=== PATIENT | male | born 1980 | race Caucasian/White ===

== ENCOUNTER 2017-04-01 18:55 | Emergency (ER) | payer SELFPAY ==
--- NOTE | 2017-04-01 19:54 | ED ORDER SUMMARY ---
..... Patient: VERO CARPENTER OrderSheet [facility] VisitID: [id number] [place] [address] 37y, M Registration Date/Time: 04/01/2017 ORDER SHEET Weight: 68.0 kg (stated) Allergies: No Known Drug Allergy GENERAL ORDERS: MEDICATION ORDERS: Proparacaine Eye Drops (Solution 0.5 %) 2 drops (place at bedside) (:04/01/2017 Delfina AJ) (Ack 19:30 HSoule) (20:33 HSoule) Fluorescein Eye Strips 1 strips (NOW) (04/01/2017 Delfina AJ) (Ack 19:30 HSoule) (20:33 HSoule) IV FLUIDS: ORDER SHEET NOTES: [Electronically signed by Laura Wilkins (20:33 04/01/2017)] [Electronically signed by Raghavendra Vazquez MD (09:43 04/02/2017)] [Electronically locked/signed by Laura Wilkins (20:33 04/01/2017)]
--- NOTE | 2017-04-01 19:54 | ED ORDER SUMMARY ---
..... Patient: VERO CARPENTER OrderSheet [facility] VisitID: [id number] [place] [address] 37y, M Registration Date/Time: 04/01/2017 ORDER SHEET Weight: 68.0 kg (stated) Allergies: No Known Drug Allergy GENERAL ORDERS: MEDICATION ORDERS: Proparacaine Eye Drops (Solution 0.5 %) 2 drops (place at bedside) (:04/01/2017 Delfina AJ) (Ack 19:30 HSoule) (20:33 HSoule) Fluorescein Eye Strips 1 strips (NOW) (04/01/2017 Delfina AJ) (Ack 19:30 HSoule) (20:33 HSoule) IV FLUIDS: ORDER SHEET NOTES: [Electronically signed by Laura Wilkins (20:33 04/01/2017)] [Electronically signed by Raghavendra Vazquez MD (09:43 04/02/2017)] [Electronically locked/signed by Laura Wilkins (20:33 04/01/2017)]
--- NOTE | 2017-04-01 19:54 | ED CLINICAL REPORT ---
Clinical Report - Physicians/Mid Levels [facility] [address] [place] [address] 04/01/2017 18:56 Patient: VERO CARPENTER Time Seen: 19:22. Arrived- By private vehicle. Historian- patient. HISTORY OF PRESENT ILLNESS Chief Complaint: EYE FOREIGN BODY. This started today, involves the left eye, is characterized as severe and has been constant and is still present. The patient may have sustained an injury. 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 He possibly has foreign material in the left eye. Eye discomfort, burning, redness and irritation. REVIEW OF SYSTEMS No chills, fever, sweats, calf pain or chest pain. No cough, difficulty breathing, pedal edema, palpitations or abdominal pain. No constipation, diarrhea, nausea, vomiting or urinary problems. All systems otherwise negative, except as recorded above. PAST HISTORY Tetanus immunization status is up-to-date. SOCIAL HISTORY Never smoker. Occasional alcohol use. No drug use. FAMILY HISTORY No significant family medical history. ADDITIONAL NOTES The nursing notes have been reviewed. PHYSICAL EXAM Vital Signs: 04/01/2017 19:10 BP: 136/91. HR: 79. RR: 20. O2 saturation: 99%. Temp: 97.6 F. Pain level now: 9/10. Have been reviewed. Appearance: Alert. HEENT: Pharynx normal. Eyes: Visual acuity noted- see nurse's notes. Left eyelid everted for examination. Left cornea examined with fluorescein stain. Pupils equal, round and reactive to light. Accommodation normal. Funduscopic exam normal. EOMs intact. Anterior chambers clear. Anterior chambers of normal depth. Lt Eye: Eyelid erythema. Conjunctival edema. Injected conjunctiva. Conjunctival injury: mild swelling and small abrasion localized to the inferior aspect of the conjunctiva. No foreign body under the eyelid. No injury to the eyelids. No conjunctival foreign body, corneal foreign body or abrasion or fluorescein dye uptake. Neck: Neck supple. CVS: Normal heart rate and rhythm. Respiratory: No respiratory distress. Skin: No rash. Extremities: Extremities negative. PROGRESS AND PROCEDURES Course of Care: Patient is stable. Patient/family counseled. Old medical records reviewed. Disposition: Discharged. Condition: stable. CLINICAL IMPRESSION Acute conjunctivitis of the left eye. INSTRUCTIONS Warnings: GENERAL WARNINGS: Return or contact your physician immediately if your condition worsens or changes unexpectedly, if not improving as expected, or if other problems arise. Prescription Medications: Gentamicin ophthalmic ointment 0.3% : Apply 1/2 inch to inner aspect of the lower lid on the affected eye every 8 hours for 1 week. Dispense three and one half (3.5) gm. No refills. OTC Medications: Lacri-Lube ophthalmic ointment (available over the counter): take according to label instructions. Follow-up: Follow up with your doctor as needed. Understanding of the discharge instructions verbalized by patient. (Electronically signed by Raghavendra Vazquez MD 04/02/2017 9:43)
--- NOTE | 2017-04-01 19:54 | ED NURSING NOTES ---
Clinical Report - Nurses [facility] [place] [address] 04/01/2017 18:56 Patient: VERO CARPENTER TRIAGE Triage time 19:11. Acuity: LEVEL 3. Chief Complaint: REDNESS, PAIN and FOREIGN BODY TO LEFT EYE. --19:15 Sheriff Hanna R.N. 19:10 04/01/17. BP: 136/91. HR: 79. RR: 20. O2 saturation: 99%. Temp: 97.6 F. Pain level now: 05/29. --19:15 Sheriff Hanna R.N. VISUAL ACUITY: Visual acuity performed: left eye 20/30; right eye 20/20. --19:16 Sheriff Hanna R.N. Weight: 68 kg stated. Height/Length: 68 inches Per Patient. BMI: 22.8. --19:11 Sheriff Hanna R.N. Medications None. --19:13 Sheriff Hanna R.N. Allergies No Known Drug Allergy. --19:13 Sheriff Hanna R.N. History Arrived by private vehicle. Historian: patient. Accompanied by friend. This started yesterday. He did not sustain an injury. 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 He does steel work.). SURGERY HX: No history of previous surgery. SOCIAL HX: Never smoker. Alcohol use; consumes beer weekly. No drug use. FALL RISK ASSESSMENT: Fall risk assessment completed. No fall risk identified. NUTRITIONAL RISK ASSESSMENT: The nutritional risk assessment revealed no deficiencies. FUNCTIONAL ASSESSMENT: Functional assessment: no impairments noted. LEARNING NEEDS ASSESSMENT: The learning needs assessment revealed no barriers. SKIN INTEGRITY ASSESSMENT: Skin integrity risk assessment completed. No skin integrity risk identified. --19:15 Sheriff Hanna R.N. PROBLEMS: Hypertension. Laceration. Substance Abuse. Immunizations. Healing Abscess. Abscess. Cellulitis. Tetanus Status. --19:14 Sheriff Hanna R.N. PHYSICAL ASSESSMENT Ambulatory to room. GENERAL / NEURO / PSYCH: Alert. Appears anxious. HEENT: No facial asymmetry noted. RESPIRATORY: Respirations not labored. CVS: Capillary refill less than 2 seconds. SKIN: Skin is warm and dry. Normal skin turgor. --19:15 Sheriff Hanna R.N. NURSING PROGRESS NOTES Head of bed elevated. Patient identifiers checked. Call light placed in reach. Side rails up x 2. Bed placed in lowest position. Brakes of bed on. --19:15 Sheriff Hanna R.N. 19:45 04/01/2017 Proparacaine Eye Drops Opthalmic solution 2 drop given. Given in both eyes. Allergies verified and confirmed 5 rights. (Administered by provider at bedside). --20:33 Laura Wilkins 19:45 04/01/2017 FLUORESCEIN Opth soln Opthalmic solution 1 Strip given. Given in both eyes. Allergies verified and confirmed 5 rights. (Administered by provider at bedside). --20:33 Laura Wilkins. DISPOSITION / DISCHARGE 20:00 04/01/17. Condition at departure: stable. The goals identified in the patient's plan of care were met. No learning barriers present. Discharge instructions provided and reviewed with the patient and spouse. Reviewed medication(s) side effects, precautions, dosing and course information. Prescription(s) given to the patient. Reviewed eye care instructions. Reviewed need for increased fluid intake. Patient and spouse verbalized understanding. Written instructions provided in Indonesian. ( Follow up with your PCP as needed. Keep the eyes clean. Discussed eye medication and administration. Patient and spouse verbalized understanding and had no additional questions at this time.). The patient was discharged by the physician. He was discharged home and accompanied by spouse. He left the Emergency Department ambulatory and via private vehicle. Spouse driving. FALL RISK ASSESSMENT: Fall risk assessment completed. No fall risk identified. --20:32 Laura Wilkins 20:00 04/01/17. BP: deferred. HR: deferred. RR: deferred. O2 saturation: deferred. Temp: deferred. Pain level now deferred. --20:32 Laura Wilkins. Locked/Released at 04/01/2017 20:33 by Laura Wilkins,
--- NOTE | 2017-04-01 19:54 | ED CLINICAL REPORT ---
Clinical Report - Physicians/Mid Levels [facility] [address] [place] [address] 04/01/2017 18:56 Patient: VERO CARPENTER Time Seen: 19:22. Arrived- By private vehicle. Historian- patient. HISTORY OF PRESENT ILLNESS Chief Complaint: EYE FOREIGN BODY. This started today, involves the left eye, is characterized as severe and has been constant and is still present. The patient may have sustained an injury. 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 He possibly has foreign material in the left eye. Eye discomfort, burning, redness and irritation. REVIEW OF SYSTEMS No chills, fever, sweats, calf pain or chest pain. No cough, difficulty breathing, pedal edema, palpitations or abdominal pain. No constipation, diarrhea, nausea, vomiting or urinary problems. All systems otherwise negative, except as recorded above. PAST HISTORY Tetanus immunization status is up-to-date. SOCIAL HISTORY Never smoker. Occasional alcohol use. No drug use. FAMILY HISTORY No significant family medical history. ADDITIONAL NOTES The nursing notes have been reviewed. PHYSICAL EXAM Vital Signs: 04/01/2017 19:10 BP: 136/91. HR: 79. RR: 20. O2 saturation: 99%. Temp: 97.6 F. Pain level now: 9/10. Have been reviewed. Appearance: Alert. HEENT: Pharynx normal. Eyes: Visual acuity noted- see nurse's notes. Left eyelid everted for examination. Left cornea examined with fluorescein stain. Pupils equal, round and reactive to light. Accommodation normal. Funduscopic exam normal. EOMs intact. Anterior chambers clear. Anterior chambers of normal depth. Lt Eye: Eyelid erythema. Conjunctival edema. Injected conjunctiva. Conjunctival injury: mild swelling and small abrasion localized to the inferior aspect of the conjunctiva. No foreign body under the eyelid. No injury to the eyelids. No conjunctival foreign body, corneal foreign body or abrasion or fluorescein dye uptake. Neck: Neck supple. CVS: Normal heart rate and rhythm. Respiratory: No respiratory distress. Skin: No rash. Extremities: Extremities negative. PROGRESS AND PROCEDURES Course of Care: Patient is stable. Patient/family counseled. Old medical records reviewed. Disposition: Discharged. Condition: stable. CLINICAL IMPRESSION Acute conjunctivitis of the left eye. INSTRUCTIONS Warnings: GENERAL WARNINGS: Return or contact your physician immediately if your condition worsens or changes unexpectedly, if not improving as expected, or if other problems arise. Prescription Medications: Gentamicin ophthalmic ointment 0.3% : Apply 1/2 inch to inner aspect of the lower lid on the affected eye every 8 hours for 1 week. Dispense three and one half (3.5) gm. No refills. OTC Medications: Lacri-Lube ophthalmic ointment (available over the counter): take according to label instructions. Follow-up: Follow up with your doctor as needed. Understanding of the discharge instructions verbalized by patient. (Electronically signed by Raghavendra Vazquez MD 04/02/2017 9:43)
--- NOTE | 2017-04-02 09:43 | ED DISCHARGE INSTRUCTIONS ---
Patient: VERO CARPENTER General Instructions [facility] VisitID: [id number] [place] [address] 37y, M Registration Date/Time: 04/01/2017 Acute conjunctivitis of the left eye. INSTRUCTIONS Warnings: GENERAL WARNINGS: Return or contact your physician immediately if your condition worsens or changes unexpectedly, if not improving as expected, or if other problems arise. Prescription Medications: Gentamicin ophthalmic ointment 0.3% : Apply 1/2 inch to inner aspect of the lower lid on the affected eye every 8 hours for 1 week. Dispense three and one half (3.5) gm. No refills. OTC Medications: Lacri-Lube ophthalmic ointment (available over the counter): take according to label instructions. Follow-up: Follow up with your doctor as needed. Understanding of the discharge instructions verbalized by patient. ADDITIONAL INFORMATION Conjunctivitis, Non-Specific The membrane that covers your eye is inflamed. Any itching, burning or irritation should go away within the next 24 hours. Conjunctivitis may be related to a particle that was in your eye. If so, it was washed out with your tears or irrigation treatment. Being exposed to liquid chemicals or fumes may also cause this reaction. Your condition does not appear to be due to an eye infection. Home Care: Apply a cold pack (ice in a plastic bag, wrapped in a towel) over the eye for 20 minutes at a time. This will reduce pain. Eye drops may be prescribed to reduce irritation or redness. Otherwise, Visine or similar [id number] decongestant eye drops may be used. You may use acetaminophen (Tylenol) or ibuprofen (Motrin, Advil) to control pain, unless another medicine was prescribed. [ NOTE: If you have chronic liver or kidney disease or ever had a stomach ulcer or GI bleeding, talk with your doctor before using these medicines.] Follow Up with your doctor or this facility as directed, or if your symptoms have not improved after 24 hours. Get Prompt Medical Attention if any of the following occur: Increased eyelid swelling Increase in eye pain Increased redness or drainage from the eye Failure of normal vision to return within 24-48 hours. You have been given the following additional information: Conjunctivitis, Non-Specific (Electronically signed by Raghavendra Vazquez MD 04/02/2017 9:43)
--- NOTE | 2017-04-02 09:43 | ED MED RECONCILIATION SUMMARY ---
Patient: VERO CARPENTER Medication Reconciliation Report [facility] VisitID: [id number] [place] [address] 37y, M Registration Date/Time: 04/01/2017 Weight: 68.0 kg Height/Length: 68 in. BMI: 22.8 ALLERGIES: No Known Drug Allergy The patient's Home Medications are listed below: NONE. The source(s) of the original Home Medication information: Not obtained. The following Medications were given to the patient in the Emergency Department: Proparacaine [Eye Drops] Eye Drops 2 drop, administered: 04/01/2017 7:45:00 PM FLUORESCEIN [EYE STRIPS] Opth soln 1 Strip, administered: 04/01/2017 7:45:00 PM The following Medications were prescribed to the patient: Lacri-Lube ophthalmic ointment (available over the counter): take according to label instructions. -- Raghavendra Vazquez MD Gentamicin ophthalmic ointment 0.3% : Apply 1/2 inch to inner aspect of the lower lid on the affected eye every 8 hours for 1 week. Dispense three and one half (3.5) gm. No refills. -- Raghavendra Vazquez MD
--- NOTE | 2017-04-02 09:43 | ED MAR SUMMARY ---
..... Medication Administration Record [facility] [address] [place] [address] Patient: VERO CARPENTER Visit ID: [id number] 37y, M Weight: 68.0 kg Height/Length: 68 in BMI: 22.8 ALLERGIES: No Known Drug Allergy Given 19:45 04/01/2017 Laura Wilkins, Medication Administered: PROPARACAINE [EYE DROPS], Dose: 2 drop Opthalmic solution Eye Drops. Medication Ordered: Proparacaine Eye Drops (Solution 0.5 %) 2 drops (place at bedside). Given 19:45 04/01/2017 Laura Wilkins, Medication Administered: FLUORESCEIN [EYE STRIPS], Dose: 1 Strip Opthalmic solution Opth soln. Medication Ordered: Fluorescein Eye Strips 1 strips (NOW).
--- NOTE | 2017-04-02 09:43 | ED DISCHARGE INSTRUCTIONS ---
Patient: VERO CARPENTER General Instructions [facility] VisitID: [id number] [place] [address] 37y, M Registration Date/Time: 04/01/2017 Acute conjunctivitis of the left eye. INSTRUCTIONS Warnings: GENERAL WARNINGS: Return or contact your physician immediately if your condition worsens or changes unexpectedly, if not improving as expected, or if other problems arise. Prescription Medications: Gentamicin ophthalmic ointment 0.3% : Apply 1/2 inch to inner aspect of the lower lid on the affected eye every 8 hours for 1 week. Dispense three and one half (3.5) gm. No refills. OTC Medications: Lacri-Lube ophthalmic ointment (available over the counter): take according to label instructions. Follow-up: Follow up with your doctor as needed. Understanding of the discharge instructions verbalized by patient. ADDITIONAL INFORMATION Conjunctivitis, Non-Specific The membrane that covers your eye is inflamed. Any itching, burning or irritation should go away within the next 24 hours. Conjunctivitis may be related to a particle that was in your eye. If so, it was washed out with your tears or irrigation treatment. Being exposed to liquid chemicals or fumes may also cause this reaction. Your condition does not appear to be due to an eye infection. Home Care: Apply a cold pack (ice in a plastic bag, wrapped in a towel) over the eye for 20 minutes at a time. This will reduce pain. Eye drops may be prescribed to reduce irritation or redness. Otherwise, Visine or similar [id number] decongestant eye drops may be used. You may use acetaminophen (Tylenol) or ibuprofen (Motrin, Advil) to control pain, unless another medicine was prescribed. [ NOTE: If you have chronic liver or kidney disease or ever had a stomach ulcer or GI bleeding, talk with your doctor before using these medicines.] Follow Up with your doctor or this facility as directed, or if your symptoms have not improved after 24 hours. Get Prompt Medical Attention if any of the following occur: Increased eyelid swelling Increase in eye pain Increased redness or drainage from the eye Failure of normal vision to return within 24-48 hours. You have been given the following additional information: Conjunctivitis, Non-Specific (Electronically signed by Raghavendra Vazquez MD 04/02/2017 9:43)
--- NOTE | 2017-04-02 09:43 | ED MAR SUMMARY ---
..... Medication Administration Record [facility] [address] [place] [address] Patient: VERO CARPENTER Visit ID: [id number] 37y, M Weight: 68.0 kg Height/Length: 68 in BMI: 22.8 ALLERGIES: No Known Drug Allergy Given 19:45 04/01/2017 Laura Wilkins, Medication Administered: PROPARACAINE [EYE DROPS], Dose: 2 drop Opthalmic solution Eye Drops. Medication Ordered: Proparacaine Eye Drops (Solution 0.5 %) 2 drops (place at bedside). Given 19:45 04/01/2017 Laura Wilkins, Medication Administered: FLUORESCEIN [EYE STRIPS], Dose: 1 Strip Opthalmic solution Opth soln. Medication Ordered: Fluorescein Eye Strips 1 strips (NOW).
--- NOTE | 2017-04-02 09:43 | ED MED RECONCILIATION SUMMARY ---
Patient: VERO CARPENTER Medication Reconciliation Report [facility] VisitID: [id number] [place] [address] 37y, M Registration Date/Time: 04/01/2017 Weight: 68.0 kg Height/Length: 68 in. BMI: 22.8 ALLERGIES: No Known Drug Allergy The patient's Home Medications are listed below: NONE. The source(s) of the original Home Medication information: Not obtained. The following Medications were given to the patient in the Emergency Department: Proparacaine [Eye Drops] Eye Drops 2 drop, administered: 04/01/2017 7:45:00 PM FLUORESCEIN [EYE STRIPS] Opth soln 1 Strip, administered: 04/01/2017 7:45:00 PM The following Medications were prescribed to the patient: Lacri-Lube ophthalmic ointment (available over the counter): take according to label instructions. -- Raghavendra Vazquez MD Gentamicin ophthalmic ointment 0.3% : Apply 1/2 inch to inner aspect of the lower lid on the affected eye every 8 hours for 1 week. Dispense three and one half (3.5) gm. No refills. -- Raghavendra Vazquez MD
== END 2017-04-01 20:00 | disposition home or self-care (01) ==
LOC: ED SRH 18:55
DX: H10.32 Unspecified acute conjunctivitis, left eye (principal); I10 Essential (primary) hypertension